=== PATIENT | female | born 1960 | race Caucasian/White ===

== ENCOUNTER 2019-03-23 08:55 | Inpatient (IN) | payer OTHER, MEDICAID, SELFPAY ==
[2019-03-08 09:58] VITALS: BMI 30.8
[2019-03-23] VITALS (15 sets, daily range): BP systolic 100–162; BP diastolic 46–104; PULSE 55–76; RESP 10–16; TEMP 36.1–36.9; O2SAT 94–100; BMI 30.1
--- NOTE | 2019-03-23 | DI.RAD.S_ITS ---
PROCEDURE: XR LUMBAR SPINE 2-3V INDICATIONS: L5-S1 TLIF TECHNIQUE: 2 views of the lumbar spine were acquired. COMPARISON: None. FINDINGS: Spot fluoroscopic images demonstrate L5-S1 posterior spinal fixation with interbody cage graft. There is expected intraoperative alignment. Dictated by: Christiano Prabhakar M.D. on 03/23/2019 at 13:32 Approved by: Christiano Prabhakar M.D. on 03/23/2019 at 13:33
[2019-03-23] MEDS: LACTATED RINGERS 1,000 ML 42 ML IV ×3 (09:30→13:50)
--- NOTE | 2019-03-23 10:05 | SUR.PREOP ---
Pt reports has pain and numbness in tingling in left leg.
--- NOTE | 2019-03-23 10:14 | PM.PREOP ---
Pre-operative Note Interval Note History & Physical reviewed/Exam performed by Physician: Yes Changes to H&P: No
--- NOTE | 2019-03-23 10:23 | PM.OP.1 ---
Operative Date/Time/Diagnoses Date of procedure: 03/23/19 Time of procedure: 13:26 Pre-op diagnosis: Lumbar stenosis with radiculopathy Post-op diagnosis: same Procedure & Clinicians Procedure: L5-S1 TLIF (post/post interbody fusion) with cage L5 and S1 screws Iliac crest bone graft aspirate L5-S1 laminectomy Use of microscope Placement of epidural catheter Same procedure as scheduled: Yes Indications: [age] year old female with intractable pain from stenosis. They had failed conservative management and requested operative intervention. Risks and benefits of surgery were discussed and appropriate consents were obtained. Surgeon: Isaac Ayala Ambulatory Care Nurse: Meghann Christensen Anesthesia Type: General Operative Notes Findings: None Closure Type: primary Specimen(s): none sent Prosthetic devices, grafts, tissues, transplants, or devices: Globus Creo screws and Rise cage Applied: catheter Estimated Blood Loss (mL): 20 Blood products transfused: none Procedure in detail: The patient was brought to the operating room and intubated on the table. A time-out was performed. They were then rolled over to the well-padded Rashel table in the prone position. Preoperative antibiotics were given. The back was prepped and draped in the standard sterile fashion. Using fluoroscopy, a 4 cm longitudinal incision was made to the well-marked left of the midline. We used Bovie to come down to and split the lumbodorsal fascia. Using fluoroscopy and monitoring, we then percutaneously placed Jamshidi needles down the pedicles of L5 and S1 on the left side. These were changed out to guidewires and then we tapped and then placed the Globus Creo screw shanks. We then opened up the retractors and used Bovie to clear up the posterolateral gutter as well as medially along the lamina to the spinous processes. A bur was used to decorticate the transverse process of L5 and the sacral ala. We brought in the microscope. Using a combination of bur and Kerrison rongeurs, a laminectomy was performed at L5-S1 from the left side. We cleared over past the midline and carefully depressed the dura until we were able to decompress the opposite side. We cleared out the neural foramen using a facetectomy to open up the dorsal roof. This completed the laminectomy at L5-S1. This was separate and distinct from the TLIF approach as we were decompressing stenosis. We then began the TLIF prep. We carefully cleaned up the remainder of the foramen until we could easily retract the exiting root as well as clearing medially below the dura and expose the disc space. The disc was prepped with bipolar and then an annulotomy was performed. We performed a diskectomy using a combination of paddles, roma, pituitaries, and curettes. We distracted the disc using a paddle and locked the retractor in an open position. We then filled the disc space with Trifecta bone graft. We then placed the globus Rise cage under fluoroscopy and then filled this in with more bone graft. The distraction on the retractor was released to compress down. This completed the posterior interbody fusion portion of the TLIF at L5-S1. We then placed the screw heads, corey, and locked down the set screws. The wound was copiously irrigated. A small stab incision was made over the PSIS. We used a Jamshidi needle to aspirate several mL of bone marrow from the pelvis. This was mixed with the remaining Trifecta and combined with all of the locally harvested bone graft and placed in the posterolateral gutter for the posterior fusion of the TLIF at L5-S1. An epidural catheter was then placed in the spinal canal by carefully depressing the dura and advancing it 6 cm cephalad under the remaining lamina without resistance. The muscle fascia was closed. The catheter was then injected with a solution containing 4 mL of 0.5% Marcaine, 1 mg Stadol, 4 mg Duramorph, and 100 mcg of fentanyl. This was injected without resistance and the catheter was pulled. We then went to the opposite side. Again using fluoroscopy, a 3 cm incision was made and Bovie was used to come down to split the fascia. Using neural monitoring and fluoroscopy, Jamshidi needles were advanced down the pedicles of L5 and S1 on the right side. These were switched over guidewires, tapped, and screws placed. We then placed a corey and locked the set screws on this side. The wound was irrigated. The fascia was closed. Vancomycin powder was placed in the wounds. The superficial and skin were closed. A sterile dressing was placed. The patient was then rolled over extubated and brought to recovery room without complications. Complications: none Post-operative Condition: stable Disposition: PACU Plan for aftercare: Inpatient. Up with therapy.
[2019-03-23] MEDS: CEFAZOLIN 2 GM/100 ML FROZ.PIGGY IV ×2 (11:00→19:12)
--- NOTE | 2019-03-23 11:33 | SUR.OPER ---
Prone on spine table, head in foam head support, padded chest and pelvic supports, gel pad at knees, lower legs supported by pillows; nipples, genitalia and toes free of pressure, arms secured on foam padded arm boards at <90 degrees abduction. Tape over blanket at thigh secured to table.
[2019-03-23] MEDS: SODIUM CHLORIDE 0.9% 1,000 ML, GENTAMICIN 80 MG IRR (11:37)
[2019-03-23] MEDS: THROMBIN (RECOMBINANT) 5,000 UNIT VIAL 5000 UNIT TOP (11:37)
[2019-03-23] MEDS: VANCOMYCIN 1,000 MG VIAL 1000 MG TOP (11:37)
[2019-03-23] MEDS: BUPIVACAINE 0.5% (PF) 4 ML, MORPHINE-PF 4 MG, BUTORPHANOL 1 MG, fentaNYL 100 MCG INJ (12:07)
[2019-03-23] MEDS: fentaNYL 100 MCG/2 ML INJ IV ×2 (14:15→14:25)
[2019-03-23] MEDS: hydrOXYzine 50 MG/ML INJ 25 MG IM (14:32)
[2019-03-23] MEDS: HYDROMORPHONE 2 MG INJ IV ×2 (14:36→14:50)
[2019-03-23] MEDS: GABAPENTIN 600 MG TABLET PO ×2 (16:00→21:49)
[2019-03-23] MEDS: OXYCODONE IR 5 MG TABLET 10 MG PO ×3 (16:01→23:00)
[2019-03-23] MEDS: ACETAMINOPHEN 325 MG TABLET 650 MG PO ×2 (16:01→22:59)
[2019-03-23] MEDS: LACTATED RINGERS 1,000 ML 125 ML IV (16:02)
--- NOTE | 2019-03-23 16:17 | PC.NURSE ---
Addendum entered by Charo Mcguire R.N. 03/23/19 23:34: Up in recliner for evening meal. Sat up for lengthy period and required one assist with walker to return to bed. Observes log roll technique. Remains awake all shift, conversant with staff. Cruz to gravity with brisk urinary output. Pain 4/10 to back. Medicated as per emar. BL foot pumps in place. Addendum entered by Charo Mcguire R.N. 03/23/19 16:53: P.T. in to mobilize pt. Original Note: Pt to room 214 from PACU wide wake. Admits to full sensation to BL LE's. Able to push/pull with feet BL. BL foot pumps in place. Denies nausea. Reinforced no twisting, bending, lifting. Log roll technique reinforced as pt turned to left side and positioned for comfort in bed. Dressing to central lower back is dry and intact. Ice to site. Multiple visitors in with pt. Pt is conversant. Given applesauce and crackers with oxycodone and tylenol to manage back pain 6/10 which pt describes as constant and dull in nature. Call light available and pt instructed in use of bed controls.
--- NOTE | 2019-03-23 17:44 | PT.IIE ---
Current Diagnoses Spinal stenosis, lumbar region with neurogenic claudication (03/23/19) Other intervertebral disc degeneration, lumbar region (03/23/19) Radiculopathy, lumbar region (03/23/19) Surgery Performed Operation Date: 03/23/19 11:15 Actual Procedures p L5S1 laminectomy & instrumented fusion (TLIF) w/ bone graft - Isaac Ayala MD Surgical History (Last Updated 03/08/19 @ 10:15 by Vicki Moncada, RN) History of partial hysterectomy (Acute ~1983) Hx of tonsillectomy (Acute) Hx of tubal ligation (Acute ~1982) Medical History (Last Updated 03/08/19 @ 10:15 by Vicki Moncada RN) Easy bruisability (Acute) Heartburn (Acute) HTN (hypertension) (Acute) IBS (irritable bowel syndrome) (Acute) Kidney stones (Acute ~1981) MRSA (methicillin resistant Staphylococcus aureus) (Acute ~2009) Sciatica (Acute) Physical Therapy Inpatient Evaluation/Re-Eval M1 PT/OT-IP Prior Functional Status Start: 03/23/19 17:13 Freq: NEEDED Status: Active Protocol: Document 03/23/19 16:50 HH (Rec: 03/23/19 17:43 [id number]) Medical Review Prior Functional Status Medical History Reviewed Yes Diet/Fluid Consistency Regular Communication no deficits noted. Able to make needs known Mobility and Gait Pt was independent for home and community mobility without AD. Pt did say she has lots of pain for prolonged standing , walking and sitting. Moving around does help her to relieve pain. Activities of Daily Living and IADL's Independent for ADLs and IADLs without AD Social History Household Members family Living Arrangements House Number of Floors (Floors) One Floor Number of Stairs To Enter/Railing? 2 KARUNA with b rails Home Environment Standard Height Toilet,Tub/ Shower Home Equipment Four Wheel Walker,Straight Cane Employment Status Unemployed Additional Social History Comment Pt lives in [place] with her sister and brother in law. Her sister is a CG for her so she will be home to assist 29/11 upon pt's d/c. Pt has a BF Raheel who is her ex will also be able to assist if needed. M2 PT-IP Current Condition Start: 03/23/19 17:13 Freq: NEEDED Status: Active Protocol: Document 03/23/19 16:50 (Rec: 03/23/19 17:43 [id number]) Physical Therapy Current Condition Current Condition Evaluation Date 03/23/19 Treatment Diagnosis L5-S1 TLIF, decreased activity tolerance, difficulty in walking Onset Date 03/23/19 Precautions Lumbar Precautions Log Roll,No Twisting,Limit Bending,Lifting Restriction of 10 lbs,Gait Belt above Incisional Area Weight Bearing Status Weight Bearing Status Full Weight Bearing M3 PT-IP Subjective Start: 03/23/19 17:13 Freq: NEEDED Status: Active Protocol: Document 03/23/19 16:50 HH (Rec: 03/23/19 17:43 [id number]) Subjective Physical Therapy Visit Type Type Initial Evaluation Visit Start Time 16:50 Visit Stop Time 17:15 Total Visit Minutes 25 Notes Per Nursing, pt has sensation to BLEs and ready to get OOB. Pt's BF Raheel attended session. Number of CARTON WAXING MACHINE OPERATOR Visits 0 Physical Therapy Visit Comments Patient Comments I think i am ready to walk Patient Goals To return home with her sister . Therapy Pain Assessment Pain When Pain Assessed During Mobility Pain Present Pain Present Pain Reported Location back Intensity 6 Scale Used Numeric (1 - 10) Description Acute Pain Management Techniques Apply Cold,Re-positioning, Timing of Activity with Medications M4 PT-IP Mobility and Gait Start: 03/23/19 17:13 Freq: NEEDED Status: Active Protocol: Document 03/23/19 16:50 HH (Rec: 03/23/19 17:43 [id number]) PT-Bed Mobility Assessment Rolling Type of Rolling Log Rolling,Roll to Left Level of Assist Contact Guard Assistance Supine to Sit Supine to Sit Contact Guard Assistance Scooting Scooting to Edge of Bed Contact Guard Assistance PT-Transfer Assessment Sit to and From Stand Sit to and from Stand Contact Guard Assistance,Use of Upper Extremities Equipment Transfer Assistive Device Gait Belt,Front Wheeled Walker Orthotic/Prosthetic Devices or Brace: No Transfers Transfer Destination Chair Transfer Technique Stand Step Pivot Transfer Ability Level of Assist Contact Guard Assistance,Use of Upper Extremities Comments Mobility Comments Pt's BP pre and post mobility = 120s/60s. Pt was in bed upon assessment. Pt was able to complete log roll to L EOB and sat up with CGA, followed by scooting towards EOB. She then stood up with CGA and FWW, then amb towards the end of [facility]. She then returned to bedside chair with stand step pivot with safe proper hand placements on armrests. Pt sat in chair comfortably with call light within reach. Gait Assessment Gait Gait Assistance Required: Contact Guard Assist Distance (Feet) 150 Able to Maintain Weight Bearing Status Yes During Gait Assistive Devices Assistive Device Gait Belt,Front Wheeled Walker Orthotic/Prosthetic Devices or Brace: No Gait Deviations General Gait Pattern Decreased Stride Length, Decreased Feet Clearance Factors Limiting Gait Function Factors Limiting Gait Function Decreased Activity Tolerance, Decreased Strength,Limited Range of Motion,Pain Comments Gait Comments Pt amb from her room to end of [facility] and returned to bedside chair with FWW CGA. Pt appears very steady and no signs of LOB. She stated she is walking slightly slower then PLOF but feels very safe at this point. Pt did c/o increased back pain to 6/10 after amb. Stair Climbing Assessment Comments Stair Climbing Comments did not assess PT-Balance Assessment Sitting Balance and Reactions Static Sitting Balance Ability Normal Dynamic Sitting Balance Ability Normal Standing Balance and Reactions Static Standing Balance Ability Good Dynamic Standing Balance Ability Good Device Used fww M5 PT-IP Objective Assessments Start: 03/23/19 17:13 Freq: NEEDED Status: Active Protocol: Document 03/23/19 16:50 HH (Rec: 03/23/19 17:43 [id number]) Orientation Orientation/Cognition Level of Alertness Alert Orientation Name,Age,Birthday,Month,Date, Year,Day of Week,Place, Situation Language Function Ability No Deficits Noted Safety Awareness Understands Safety Issues Memory Description No Deficits Noted Comments pt is able to recall all precautions. Gross Range of Motion Upper Extremity ROM Assessment Within Functional Limits Lower Extremity ROM Assessment Within Functional Limits Strength Upper Extremity Strength Assessment Within Functional Limits Lower Extremity Strength Assessment Bilaterally Impaired Hip 4/5 Knee 4/5 Coordination Assessment Gross Coordination Gross Coordination WNL Sensation Assessment Sensation Gross Sensation WNL Muscle Tone Muscle Tone WNL Yes M6 PT-IP Treatment Start: 03/23/19 17:13 Freq: NEEDED Status: Active Protocol: Document 03/23/19 16:50 HH (Rec: 03/23/19 17:43 [id number]) Physical Therapy Treatment Education Education Provided Precautions,Weight Bearing Status,Post-Op Packet,Safety Other Treatments Other Treatment Performed adjust pt's 4WW to her wrist level for mobility use. Education on precautions and log roll method. M7 PT-IP Assessment and Plan Start: 03/23/19 17:13 Freq: NEEDED Status: Active Protocol: Document 03/23/19 16:50 HH (Rec: 03/23/19 17:43 HH [id number]) PT Summary Assessment and Plan Potential Rehabilitation Potential Excellent Status of Condition at Evaluation Stable Summary Impairments Pain,ROM,Strength,Balance,Bed Mobility,Transfers,Gait, Activity Tolerance Assessment Summary Pt is low complexity who is POD1 L5-S1 TLIF. Pt did very well for all mobility: transfers and amb with FWW and CGA. She also denies radiating pain but does have increased RLBP to 6/10 after amb. Pt has strong social support to assist her as needed. Expect pt to be d/c home with sister/boyfriend's assistance. Goals Bed Mobility Goal Independent Transfer Goal Independent,Front Wheeled Walker,Four Wheeled Walker Gait Goal Independent,Front Wheel Walker ,Four Wheel Walker Gait Distance 300 Other Goals amb with 4WW 2STE with b rails Days to Meet Goals 5 Frequency of Treatment Frequency Of Treatment Twice a Day Treatment Plan Physical Therapy Treatment Plan Bed Mobility Training,Transfer Training,Gait Training, Therapeutic Exercise,Balance Retraining,Post Op Education, Discharge Planning,Hot or Cold Pack,Neuromuscular Re-ed Other Recommendations and Next Treatment stair climbing if possible Focus 4WW training as pratik Recommendations To Nursing Amount of Assist Needed 1 Person Assist Discharge Recommendations PT Discharge Recommendations Home with Assistance Equipment Needed for Home Before shower seat Discharge
[2019-03-23] MEDS: hydrOXYzine pamoate 25 MG CAPSULE PO (21:47)
[2019-03-24] VITALS: BP 126/73; PULSE 70; RESP 16; TEMP 36.4; O2SAT 94
[2019-03-24] MEDS: LACTATED RINGERS 1,000 ML 125 ML IV (00:05)
[2019-03-24] MEDS: CEFAZOLIN 2 GM/100 ML FROZ.PIGGY IV (03:31)
[2019-03-24] MEDS: OXYCODONE IR 5 MG TABLET 10 MG PO ×6 (03:33→22:45)
[2019-03-24 05:38] VITALS: BP 106/62; PULSE 72; RESP 16; TEMP 36.3; O2SAT 98
[2019-03-24 06:13] LABS: Hematocrit 35.8 % (36-46); Hemoglobin 12.5 g/dL (12.0-16.0)
[2019-03-24 07:30] VITALS: BP 100/65; PULSE 72; RESP 16; TEMP 36.8; O2SAT 95
--- NOTE | 2019-03-24 08:09 | PM.PNPO.1 ---
Subjective Subjective Date Patient Seen: 03/24/19 Time Patient Seen: 08:09 Interval history: She is nearly pain-free yesterday but the pain levels have been going up this morning. Comfortable at rest but 6/10 across the back when moving. Legs are fine Exam Vital Signs (past 8 hours): - 03/24/19 05:38 Temperature 97.4 F L Pulse Rate 72 Respiratory Rate 16 Blood Pressure 106/62 Pulse Oximetry 98 Oxygen Delivery Method Room Air Oxygen Flow Rate 0 Const Orientation: alert and oriented x3 Back/Spine/Pelvis Other: Dressing clean but peeling up. 5/5 motor both lower extremities Objective Labs Result Diagrams: 03/24/19 06:02 Labs: Laboratory Results - last 24 hr 03/24/19 06:02 Hgb 12.5 Hct 35.8 L Assessment & Plan Post-op Postoperative Procedures: Procedures Operation Date: 03/23/19 11:15 Actual Procedures Side Surgeon p L5S1 laminectomy & instrumented fusion (TLIF) w/ bone graft Isaac Ayala MD Her epidural is wearing off but her pain is still under good control. Mobilize today with physical therapy. Anticipate discharge home tomorrow. Quality VTE Deep Vein Thrombosis/Pulmonary Embolism Present on Admission: No
[2019-03-24] MEDS: GABAPENTIN 600 MG TABLET PO ×3 (09:12→22:02)
--- NOTE | 2019-03-24 10:35 | PT.IPTN ---
Current Diagnoses Spinal stenosis, lumbar region with neurogenic claudication (03/23/19) Other intervertebral disc degeneration, lumbar region (03/23/19) Radiculopathy, lumbar region (03/23/19) Surgery Performed Operation Date: 03/23/19 11:15 Actual Procedures p L5S1 laminectomy & instrumented fusion (TLIF) w/ bone graft - Isaac Ayala MD Physical Therapy Treatment Note M2 PT-IP Current Condition Start: 03/23/19 17:13 Freq: NEEDED Status: Active Protocol: Document 03/24/19 10:08 DCW (Rec: 03/24/19 10:47 DCW [id number]) Physical Therapy Current Condition Current Condition Evaluation Date 03/23/19 Treatment Diagnosis L5-S1 TLIF, decreased activity tolerance, difficulty in walking Onset Date 03/23/19 Precautions Lumbar Precautions Log Roll,No Twisting,Limit Bending,Lifting Restriction of 10 lbs,Gait Belt above Incisional Area Weight Bearing Status Weight Bearing Status Full Weight Bearing M3 PT-IP Subjective Start: 03/23/19 17:13 Freq: NEEDED Status: Active Protocol: Document 03/24/19 10:08 DCW (Rec: 03/24/19 10:47 DCW [id number]) Subjective Physical Therapy Visit Type Type Treatment Note Visit Start Time 10:08 Visit Stop Time 10:35 Total Visit Minutes 27 Number of LITURGICAL MUSIC DIRECTOR Visits 0 Physical Therapy Visit Comments Patient Comments I'm not doing as well today. I just tried to adjust myself in bed, and my pain got up to a 7-8/10. Therapy Pain Assessment Pain When Pain Assessed During Mobility Pain Present Pain Present Pain Reported Location back Intensity 5 Scale Used Numeric (1 - 10) Description Acute Pain Management Techniques Modification of Treatment,Re- positioning,Timing of Activity with Medications M4 PT-IP Mobility and Gait Start: 03/23/19 17:13 Freq: NEEDED Status: Active Protocol: Document 03/24/19 10:08 DCW (Rec: 03/24/19 10:47 DCW [id number]) Gait Assessment Gait Gait Assistance Required: Standby Assistance Distance (Feet) 300 Able to Maintain Weight Bearing Status Yes During Gait Assistive Devices Assistive Device Gait Belt,4 Wheeled Walker Orthotic/Prosthetic Devices or Brace: No Factors Limiting Gait Function Factors Limiting Gait Function Limited Range of Motion,Pain Comments Gait Comments Pt ambulated from her room to the therapy stairs, ascended/ descended stairs x3 /c bilateral rails, and then returned to her room using the 4WW, all SBA Stair Climbing Assessment Evaluation Level of Assist On Stairs Standby Assistance,Contact Guard Assistance Devices Stair Climbing Assistive Devices Left Railing,Right Railing Technique/Endurance Stair Climbing Direction Ascend and Descend Stair Climbing Technique Step Over Step Number of Steps Climbed 3 Stair Climbing Set # Repetitions (reps) 3 M5 PT-IP Objective Assessments Start: 03/23/19 17:13 Freq: NEEDED Status: Active Protocol: Document 03/23/19 16:50 HH (Rec: 03/23/19 17:43 HH [id number]) Orientation Orientation/Cognition Level of Alertness Alert Orientation Name,Age,Birthday,Month,Date, Year,Day of Week,Place, Situation Language Function Ability No Deficits Noted Safety Awareness Understands Safety Issues Memory Description No Deficits Noted Comments pt is able to recall all precautions. Gross Range of Motion Upper Extremity ROM Assessment Within Functional Limits Lower Extremity ROM Assessment Within Functional Limits Strength Upper Extremity Strength Assessment Within Functional Limits Lower Extremity Strength Assessment Bilaterally Impaired Hip 4/5 Knee 4/5 Coordination Assessment Gross Coordination Gross Coordination WNL Sensation Assessment Sensation Gross Sensation WNL Muscle Tone Muscle Tone WNL Yes M6 PT-IP Treatment Start: 03/23/19 17:13 Freq: NEEDED Status: Active Protocol: Document 03/24/19 10:08 DCW (Rec: 03/24/19 10:47 DCW [id number]) Physical Therapy Treatment Education Education Provided Precautions,Safety M7 PT-IP Assessment and Plan Start: 03/23/19 17:13 Freq: NEEDED Status: Active Protocol: Document 03/24/19 10:08 DCW (Rec: 03/24/19 10:47 DCW [id number]) PT Summary Assessment and Plan Summary Impairments Pain,ROM,Strength,Balance,Bed Mobility,Transfers,Gait, Activity Tolerance Assessment Summary Pt is experiencing increased pain POD #2, however performed an excellent log roll independently, and was independent with bed mobility and transfers. Pt felt much better after getting up and walking, and was able to walk to the therapy stairs, ascend/ descend three times, and then return to her room using her 4WW. Pt doing very well mobility-[place], and will likely be safe to return home after her pain is better controlled. Continued therapy will focus on practicing gait tolerance, stairs, and strengthening/ balance training. Goals Bed Mobility Goal Independent Transfer Goal Independent,Front Wheeled Walker,Four Wheeled Walker Gait Goal Independent,Front Wheel Walker ,Four Wheel Walker Gait Distance 300 Other Goals amb with 4WW 2STE with b rails Days to Meet Goals 5 Frequency of Treatment Frequency Of Treatment Twice a Day Treatment Plan Physical Therapy Treatment Plan Bed Mobility Training,Transfer Training,Gait Training, Therapeutic Exercise,Balance Retraining,Post Op Education, Discharge Planning,Hot or Cold Pack,Neuromuscular Re-ed Other Recommendations and Next Treatment stairs, 4WW training as pratik, Focus balance/strength Recommendations To Nursing Amount of Assist Needed Standby Assistance,1 Person Assist Discharge Recommendations PT Discharge Recommendations Home with Assistance Equipment Needed for Home Before shower seat Discharge
[2019-03-24 11:12] VITALS: BP 109/72; PULSE 77; RESP 16; TEMP 36.9; O2SAT 95
--- NOTE | 2019-03-24 11:40 | OT.IP.EVAL ---
Current Diagnoses Spinal stenosis, lumbar region with neurogenic claudication (03/23/19) Other intervertebral disc degeneration, lumbar region (03/23/19) Radiculopathy, lumbar region (03/23/19) Surgery Performed Operation Date: 03/23/19 11:15 Actual Procedures p L5S1 laminectomy & instrumented fusion (TLIF) w/ bone graft - Isaac Ayala MD Past Medical History (Last Updated 03/08/19 @ 10:15 by Vicki Moncada RN) Easy bruisability (Acute) Heartburn (Acute) HTN (hypertension) (Acute) IBS (irritable bowel syndrome) (Acute) Kidney stones (Acute ~1981) MRSA (methicillin resistant Staphylococcus aureus) (Acute ~2009) Sciatica (Acute) Surgical History (Last Updated 03/08/19 @ 10:15 by Vicki Moncada RN) History of partial hysterectomy (Acute ~1983) Hx of tonsillectomy (Acute) Hx of tubal ligation (Acute ~1982) Occupational Therapy Inpatient Evaluation/Re-Eval M1 PT/OT-IP Prior Functional Status Start: 03/23/19 17:13 Freq: NEEDED Status: Active Protocol: Document 03/24/19 11:43 CGR (Rec: 03/24/19 11:57 CGR [email or web address]) Medical Review Prior Functional Status Medical History Reviewed Yes Diet/Fluid Consistency Regular Communication no deficits noted. Able to make needs known Mobility and Gait Pt was independent for home and community mobility without AD. Pt did say she has lots of pain for prolonged standing , walking and sitting. Moving around does help her to relieve pain. 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 Discussed good ergonomics for working as a supervisor food checkers and cashiers. Social History Household Members family Living Arrangements House Number of Floors (Floors) One Floor Number of Stairs To Enter/Railing? 2 KARUNA with b rails Home Environment Standard Height Toilet,Tub/ Shower Home Equipment Four Wheel Walker,Straight Cane Employment Status Unemployed Additional Social History Comment Pt lives in [place] with her sister and brother in law. Her sister is a CG for her so she will be home to assist 29/11 upon pt's d/c. Pt has a BF Raheel who is her ex will also be able to assist if needed. M2 OT-IP Current Condition Start: 03/24/19 11:42 Freq: Status: Active Protocol: Document 03/24/19 11:43 CGR (Rec: 03/24/19 11:57 CGR [email or web address]) Occupational Therapy Current Condition Current Condition Evaluation Date 03/24/19 Treatment Diagnosis L5-S1 TLIF with bone graft Diagnosis Onset Date 03/24/19 Post Operative Precautions Lumbar Precautions Log Roll,No Twisting,Limit Bending,Lifting Restriction of 10 lbs,Gait Belt above Incisional Area M3 OT- IP Subjective and Pain Start: 03/24/19 11:42 Freq: Status: Active Protocol: Document 03/24/19 11:43 CGR (Rec: 03/24/19 11:57 CGR [email or web address]) OT- Subjective Occupational Therapy Visit Type Type Initial Evaluation Visit Start Time 13:31 Visit Stop Time 11:40 Total Visit Minutes 69 Occupational Therapy Visit Comments Patient Comments My leg pain is pretty much gone. OT Pain Assessment Pain When Pain Assessed At Rest Pain Present Pain Present Pain Reported Location back Intensity 4 Scale Used Numeric (1 - 10) Management Techniques Distraction,Re-positioning, Timing of Activity with Medications M4 OT- IP ADL's Start: 03/24/19 11:42 Freq: Status: Active Protocol: Document 03/24/19 11:43 CGR (Rec: 03/24/19 11:57 CGR [email or web address]) OT [id number] Comments OT Self-Feeding Comments Not meal time but pt prepared a cup of tea with IND at end of session. OT ADL-Grooming General Evaluation Grooming Ability Independent Areas Needing Assistance Retrieving/Set-up of Grooming Items,Combing/Brushing Hair, Face Washing Comments OT Grooming Comments Standing at sink OT ADL-Oral Care General Eval Oral Care Ability Independent Areas of Assistance Brushing Teeth Comments Oral Care Comments Standing at sink OT ADL-Dressing General Eval Upper Body Dressing Ability Independent Lower Body Dressing Ability Standby Assistance Areas Needing Assistance Socks Comments OT Dressing Comments Pt able to perform LB dressing by bringing foot to knee without stretching to her lower back. Pt educated on donning underwear and pants using this technique and states understanding. OT ADL-Toileting General Evaluation Toileting Ability Independent Comments OT Toileting Comments Simulated seated on the toilet as pt still had a smith cath. Pt educated on pericare without twisting. OT ADL-Bathing Comments OT Bathing Comments Not performed in this session but discussed home safety with bathing and tub transfer. M5 OT- IP IADL's Start: 03/24/19 11:42 Freq: Status: Active Protocol: Document 03/24/19 11:43 CGR (Rec: 03/24/19 11:57 CGR [email or web address]) OT-Instrumental Activities of Daily Living Deficits IADL Deficits Identified Deficits Home Safety Awareness Awareness of Need for Assistance at Home Good Awareness Ability to Problem Solve Emergency Able to Problem Solve Situations Medication Management Medication Management No Deficits Identified Money Management Money Management No Deficits Identified Meal Preparation Meal Preparation Caregiver Provides Assist Meal Preparation Comments Pt states her sister has always done the cooking. 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 M6 OT- IP Functional Cognition Start: 03/24/19 11:42 Freq: Status: Active Protocol: Document 03/24/19 11:43 CGR (Rec: 03/24/19 11:57 CGR [email or web address]) Cognitive Factors Limiting Selfcare Function Cognitive Ability Level of Alertness Alert Patient Orientation Name,Age,Birthday,Month,Date, Year,Day of Week,Place, Situation Attention Span Ability Capable of Focused Attention, Capable of Sustained Attention Ability to Follow Commands Able to Follow Multi-Step Commands Memory Description No Deficits Noted Safety Awareness No Deficits Noted Problem Solving Ability No deficits Noted Executive Function Ability No Deficits Noted Abstract Thinking Ability No Deficits Noted OT- Vision and Hearing OT- Hearing Assessment OT- Hearing Assessment WFL OT- Vision Assessment Visual Acuity Glasses For Reading Visual Attentiveness WFL Occular Pursuits WFL Visual Convergence WFL Visual Brizuela WFL M7 OT- IP Mobility and Balance Start: 03/24/19 11:42 Freq: Status: Active Protocol: Document 03/24/19 11:43 CGR (Rec: 03/24/19 11:57 CGR [email or web address]) OT-Transfer Assessment Sit to and From Stand Sit to and from Stand Standby Assistance Transfers Transfer Ability Standby Assistance Technique Transfer Destination Chair,Toilet Transfer Technique Stand Step Pivot Devices Transfer Assistive Devices Gait Belt Comments Mobility Comments Mobility around the room with sba and gaitbelt for safety. OT- Balance Assessment Sitting Balance and Reactions Static Sitting Balance Ability Good Dynamic Sitting Balance Ability Fair M8 OT- IP Objective Assessments Start: 03/24/19 11:42 Freq: Status: Active Protocol: Document 03/24/19 11:43 CGR (Rec: 03/24/19 11:57 CGR [email or web address]) OT Gross Range of Motion Upper Extremity Range of Motion Assessment Within Functional Limits OT Strength Upper Extremity Strength Assessment Within Functional Limits Hand Petrology Teacher Strength Hand Dominance Right OT- Coordination Assessment Upper Extremity Finger to Nose Test Within Functional Limits Finger Tapping Test Within Functional Limits OT-Muscle Tone Assessment Muscle Tone WNL Yes OT Sensation Assessment Edema Edema Absent M9 OT- IP Assessment and Plan Start: 03/24/19 11:42 Freq: Status: Active Protocol: Document 03/24/19 11:43 CGR (Rec: 03/24/19 11:57 CGR [email or web address]) OT Summary Assessment and Plan Potential Rehabilitation Potential Excellent Analytic Complexity at Evaluation Low Summary OT Impairments Pain,Functional Mobility Progress Towards Goals Progressing Toward Goals,Safe For Discharge Assessment Summary Pt presents as a low complexity evaluation. Pt educated on back precautions and daily activity that would impact her ability to maintain back precautions. Pt has good support at home and is ready for D/C from an OT perspective . No further OT needs. Frequency of Treatment Frequency Of Treatment Discharge Discharge Recommendations OT Discharge Recommendations Home with 24/ Assist Home Equipment Needs Pt will benefit from a shower chair. She states she has an outdoor chair that she can use as a shower chair. No other needs noted.
--- NOTE | 2019-03-24 11:48 | PC.NURSE ---
Asssess- Patient is A&Ox3. She denies pain after 10mg of oxycodone given. Dressing to lower back will need to be changed today. Cruz catheter taken out and pt tolerated well. She is moving well with FWW and physical therapy. Pt heplocked and she is talking to discharge planning at this time. Voices no complaints.
[2019-03-24] MEDS: OXYCODONE IR 5 MG TABLET PO (12:47)
--- NOTE | 2019-03-24 13:43 | PT.IPTN ---
Current Diagnoses Spinal stenosis, lumbar region with neurogenic claudication (03/23/19) Other intervertebral disc degeneration, lumbar region (03/23/19) Radiculopathy, lumbar region (03/23/19) Surgery Performed Operation Date: 03/23/19 11:15 Actual Procedures p L5S1 laminectomy & instrumented fusion (TLIF) w/ bone graft - Isaac Ayala MD Physical Therapy Treatment Note M2 PT-IP Current Condition Start: 03/23/19 17:13 Freq: NEEDED Status: Active Protocol: Document 03/24/19 10:08 DCW (Rec: 03/24/19 10:47 DCW [id number]) Physical Therapy Current Condition Current Condition Evaluation Date 03/23/19 Treatment Diagnosis L5-S1 TLIF, decreased activity tolerance, difficulty in walking Onset Date 03/23/19 Precautions Lumbar Precautions Log Roll,No Twisting,Limit Bending,Lifting Restriction of 10 lbs,Gait Belt above Incisional Area Weight Bearing Status Weight Bearing Status Full Weight Bearing M3 PT-IP Subjective Start: 03/23/19 17:13 Freq: NEEDED Status: Active Protocol: Document 03/24/19 13:17 DCW (Rec: 03/24/19 14:26 DCW [email or web address]) Subjective Physical Therapy Visit Type Type Treatment Note Visit Start Time 13:17 Visit Stop Time 13:43 Total Visit Minutes 26 Number of BOTTOM PRECIPITATOR OPERATOR Visits 0 Physical Therapy Visit Comments Patient Comments I still feel pretty good unless I try to adjust myself in bed. I'm little light- headed from the pain pills. Also, I got myself up from the recliner, went to the bathroom, and got back in bed without any help. I probably wasn't supposed to do that, but I didn't want to bother the nurse. Therapy Pain Assessment Pain When Pain Assessed During Mobility Pain Present Pain Present Pain Reported Location back Intensity 6 Scale Used Numeric (1 - 10) Description Acute Pain Management Techniques Modification of Treatment,Re- positioning,Timing of Activity with Medications M4 PT-IP Mobility and Gait Start: 03/23/19 17:13 Freq: NEEDED Status: Active Protocol: Document 03/24/19 13:17 DCW (Rec: 03/24/19 14:26 DCW [email or web address]) Gait Assessment Gait Gait Assistance Required: Standby Assistance Distance (Feet) 483 Able to Maintain Weight Bearing Status Yes During Gait Assistive Devices Assistive Device Gait Belt Orthotic/Prosthetic Devices or Brace: No Factors Limiting Gait Function Factors Limiting Gait Function Decreased Activity Tolerance, Pain Comments Gait Comments Pt ambulated around the full hallyway of the acute floor SBA without an assistive device. M5 PT-IP Objective Assessments Start: 03/23/19 17:13 Freq: NEEDED Status: Active Protocol: Document 03/23/19 16:50 HH (Rec: 03/23/19 17:43 HH [id number]) Orientation Orientation/Cognition Level of Alertness Alert Orientation Name,Age,Birthday,Month,Date, Year,Day of Week,Place, Situation Language Function Ability No Deficits Noted Safety Awareness Understands Safety Issues Memory Description No Deficits Noted Comments pt is able to recall all precautions. Gross Range of Motion Upper Extremity ROM Assessment Within Functional Limits Lower Extremity ROM Assessment Within Functional Limits Strength Upper Extremity Strength Assessment Within Functional Limits Lower Extremity Strength Assessment Bilaterally Impaired Hip 4/5 Knee 4/5 Coordination Assessment Gross Coordination Gross Coordination WNL Sensation Assessment Sensation Gross Sensation WNL Muscle Tone Muscle Tone WNL Yes M6 PT-IP Treatment Start: 03/23/19 17:13 Freq: NEEDED Status: Active Protocol: Document 03/24/19 13:17 DCW (Rec: 03/24/19 14:26 DCW [email or web address]) Physical Therapy Treatment Education Education Provided Precautions,Safety M7 PT-IP Assessment and Plan Start: 03/23/19 17:13 Freq: NEEDED Status: Active Protocol: Document 03/24/19 13:17 DCW (Rec: 03/24/19 14:26 DCW [email or web address]) PT Summary Assessment and Plan Summary Impairments Pain,ROM,Strength,Balance,Bed Mobility,Transfers,Gait, Activity Tolerance Assessment Summary Pt not having as much pain with bed mobility this afternoon, and felt really good up walking, with just a slight pain right where the surgery was, but none in my legs. Pt ambulated around the full hallyway of the acute floor SBA without an assistive device. Pt had mild path deviation, however did not have any instances of LOB, and felt like she could probably walk more. Pt is likely approaching discharge from both in-patient PT and the hospital, and at this point, would likely be safe to return home. It may be beneficial for skilled PT to work with patient one more time to review precautions and go over LE strengthening one more time prior to discharge. Goals Bed Mobility Goal Independent Transfer Goal Independent,Front Wheeled Walker,Four Wheeled Walker Gait Goal Independent,Front Wheel Walker ,Four Wheel Walker Gait Distance 300 Other Goals amb with 4WW 2STE with b rails Days to Meet Goals 5 Frequency of Treatment Frequency Of Treatment Twice a Day Treatment Plan Physical Therapy Treatment Plan Bed Mobility Training,Transfer Training,Gait Training, Therapeutic Exercise,Balance Retraining,Post Op Education, Discharge Planning,Hot or Cold Pack,Neuromuscular Re-ed Other Recommendations and Next Treatment stairs, 4WW training as pratik, Focus balance/strength Recommendations To Nursing Amount of Assist Needed Standby Assistance,1 Person Assist Discharge Recommendations PT Discharge Recommendations Home with Assistance Equipment Needed for Home Before shower seat Discharge
--- NOTE | 2019-03-24 14:49 | CM.IDA ---
Discharge Planning/Care Management CM Discharge Assessment Start: 03/24/19 14:46 Freq: Status: Active Protocol: Document 03/24/19 14:46 AIDE (Rec: 03/24/19 14:49 AIDE [id number]) Discharge Planning Assessment Assigned Hvac Instructor BINTA Estrada DPOA/Assigned Designee Name Elvira (sister) Ashish (S.O.) Contact Information [phone], Advance Directives? No History Provided By Patient Prior Living Arrangements House Household Members family Type of transporation used prior to Drives own vehicle admit Independent with ADL's Yes Is patient alert and oriented? Yes Barriers to Discharge No Comment Reviewed chart. Met w/pt this afternoon, explained SW role. Pt explains she did well w/ therapy team and hopes to return home tomorrow or Tuesday . Pt lives w/her sister and brother in law, brother in law will be home and can assist pt physically as needed. Partner Ashish does not live w/ pt and works head buyer tobacco. Therapy team has cleared pt for return home w/outpt f/u as ordered. No DC needs identified at this time. Discharge Plan Home Transportation Arrangement Family Referrals Initiated None needed Review Status In Process
[2019-03-24 15:41] VITALS: BP 109/68; PULSE 76; RESP 18; TEMP 36.5; O2SAT 98
[2019-03-24 20:50] VITALS: BP 108/66; PULSE 87; RESP 18; TEMP 37.2
[2019-03-24] MEDS: DOCUSATE 100 MG CAPSULE PO (22:02)
[2019-03-24] MEDS: hydrOXYzine pamoate 25 MG CAPSULE PO (22:44)
[2019-03-25 00:26] VITALS: BP 97/63; PULSE 87; RESP 18; TEMP 37; O2SAT 96
[2019-03-25] MEDS: HYDROMORPHONE 0.5 MG INJ IV ×3 (01:07→09:45)
[2019-03-25] MEDS: SODIUM CHLORIDE 0.9% FLUSH 10 ML IV ×2 (01:08→05:10)
--- NOTE | 2019-03-25 01:51 | PC.NURSE ---
Addendum entered by Leigh Boss R.N. 03/25/19 05:51: Medicated again earlier with IV Dilaudid for 7/10 pain and now states she is comfortable at 4/10. Most of pain is with movements and states pain is in back and radiating down left leg into calf. Addendum entered by Leigh Boss R.N. 03/25/19 03:16: States she is doing so much better, but pain back up to 6/10 so medicated with Oxycodone but is aware she is able to have more Dilaudid if po does not work. Original Note: Patient is alert and oriented. Breath sounds CTA with RA sat of 96%. HRR. BP low at 97/63 but is asymptomatic. Denies nausea. BT present and is passing flatus. Voiding without dysuria, frequency or urgency. Moving self in bed and walks with walker and SBA. Having a great deal of back pain radiating into bilateral LE right > left. Stated pain was 7/10 so medicated with IV Dilaudid as too early to give Oxycodone. Within 15 minutes stated pain was down to 5/10 which was tolerable. CMS is intact bilaterally. Dressing to back is intact with small spots of serous drainage noted. Wearing bilateral foot SCD's. Fall risk score is moderate; bed alarm activated.
[2019-03-25] MEDS: OXYCODONE IR 5 MG TABLET 10 MG PO ×2 (03:14→07:51)
[2019-03-25 04:00] VITALS: BP 113/66; PULSE 83; RESP 18; TEMP 36.4; O2SAT 95
[2019-03-25 07:28] VITALS: BP 128/77; PULSE 84; RESP 16; TEMP 37.6; O2SAT 95
[2019-03-25] MEDS: ATENOLOL 50 MG TABLET PO (07:50)
[2019-03-25] MEDS: DOCUSATE 100 MG CAPSULE PO ×2 (07:51→21:46)
[2019-03-25] MEDS: GABAPENTIN 600 MG TABLET PO ×3 (07:51→21:46)
[2019-03-25] MEDS: ACETAMINOPHEN 325 MG TABLET 650 MG PO ×2 (09:40→22:32)
[2019-03-25] MEDS: hydrOXYzine pamoate 25 MG CAPSULE PO ×2 (09:41→21:46)
--- NOTE | 2019-03-25 10:16 | PM.PN.1 ---
Subjective Subjective Date Patient Seen: 03/25/19 Time Patient Seen: 10:16 Interval history: She was doing better yesterday, but the pain levels have been going up overnight. Sitting in chair at the moment very uncomfortable. Grimacing when I walked to the door. Lower extremities are unchanged Exam Vital Signs (past 8 hours): - 03/25/19 04:00 03/25/19 07:28 Temperature 97.5 F L 99.7 F H Pulse Rate 83 84 Respiratory Rate 18 16 Blood Pressure 113/66 128/77 Pulse Oximetry 95 95 Oxygen Delivery Method Room Air Oxygen Flow Rate 0 Narrative Exam Narrative: 5/5 strength in bilateral lower extremities however exam is pain limited. Some aching pain in the anterior aspect of her right thigh. No sensation changes Objective Labs Result Diagrams: 03/24/19 06:02 Assessment & Plan Assessment & Plan narrative: Initial plan was for possible discharge home today patient required IV Dilaudid overnight. Unchanged over her oxycodone to Dilaudid p.o. overly with better pain control. Continue mobilization Continue PT Time Spent With Patient Time with patient: less than 15 minutes Quality VTE Deep Vein Thrombosis/Pulmonary Embolism Present on Admission: No
[2019-03-25] MEDS: HYDROMORPHONE 4 MG TABLET PO ×4 (10:27→22:32)
--- NOTE | 2019-03-25 10:54 | PC.NURSE ---
Addendum entered by Maria Dolores Tong R.N. 03/25/19 14:41: Dilaudid po effective, pt's pain on movement decreased from 8/10 to 5-6/10 and with rest decreased from 4/10 to 3-4/10. Pt states feeling better and able to move around easier. Pt had shower, dressing change to lower back performed by RN Coordinator, edges rolled up. Original Note: Day Shift- Pt states 4/10 aching to lower back with rest and 8/10 with movement, tearing, facial grimacing with movement. Pain management plan discussed. PRN Oxycodone given at 0750 with no effect. PRN Tylenol and Vistaril given at 0940 and IV PRN Dilaudid IV given at 0745, PIV was not leaking with initial NS flush, became leaking and painful after Dilaudid given with NS flush after. Upon reassessment, pt did not have decreased pain as previously with last PRN IV Dilaudid dose. At 1015, Spoke with Dr. Iyer, plan to change prn pain medications. At 1030 Dilaudid 4mg po given and pt updated with new pain plan. Pt assisted back to bed from chair, lying on left side, supported with pillows and ice pack to back.
--- NOTE | 2019-03-25 12:07 | PT.IPTN ---
Current Diagnoses Spinal stenosis, lumbar region with neurogenic claudication (03/23/19) Other intervertebral disc degeneration, lumbar region (03/23/19) Radiculopathy, lumbar region (03/23/19) Surgery Performed Operation Date: 03/23/19 11:15 Actual Procedures p L5S1 laminectomy & instrumented fusion (TLIF) w/ bone graft - Isaac Ayala MD Physical Therapy Treatment Note M2 PT-IP Current Condition Start: 03/23/19 17:13 Freq: NEEDED Status: Active Protocol: Document 03/24/19 10:08 DCW (Rec: 03/24/19 10:47 DCW [id number]) Physical Therapy Current Condition Current Condition Evaluation Date 03/23/19 Treatment Diagnosis L5-S1 TLIF, decreased activity tolerance, difficulty in walking Onset Date 03/23/19 Precautions Lumbar Precautions Log Roll,No Twisting,Limit Bending,Lifting Restriction of 10 lbs,Gait Belt above Incisional Area Weight Bearing Status Weight Bearing Status Full Weight Bearing M3 PT-IP Subjective Start: 03/23/19 17:13 Freq: NEEDED Status: Active Protocol: Document 03/25/19 11:51 CLB (Rec: 03/25/19 12:49 CLB [id number]) Subjective Physical Therapy Visit Type Type Treatment Note Visit Start Time 11:51 Visit Stop Time 12:07 Total Visit Minutes 16 Number of INFORMATION SYSTEMS SECURITY ANALYST Visits 1 Physical Therapy Visit Comments Patient Comments Pt willing to work with therapy. Therapy Pain Assessment Pain When Pain Assessed At Rest Pain Present Pain Present Pain Reported Location back Pain Management Techniques Modification of Treatment,Re- positioning,Timing of Activity with Medications M4 PT-IP Mobility and Gait Start: 03/23/19 17:13 Freq: NEEDED Status: Active Protocol: Document 03/25/19 11:51 CLB (Rec: 03/25/19 12:49 CLB [id number]) PT-Transfer Assessment Sit to and From Stand Sit to and from Stand Standby Assistance Equipment Transfer Assistive Device Gait Belt,4 Wheeled Walker Orthotic/Prosthetic Devices or Brace: No Transfers Transfer Destination Chair Transfer Technique after gait walked Transfer Ability Level of Assist Standby Assistance Comments Mobility Comments Pt is SBA for sit<>stand Gait Assessment Gait Gait Assistance Required: Standby Assistance Distance (Feet) 300 Able to Maintain Weight Bearing Status Yes During Gait Assistive Devices Assistive Device Gait Belt,4 Wheeled Walker Orthotic/Prosthetic Devices or Brace: No Factors Limiting Gait Function Factors Limiting Gait Function Decreased Activity Tolerance, Pain Comments Gait Comments Pt ambulated in argu[place] with steady gait and good safety awareness. Stair Climbing Assessment Evaluation Level of Assist On Stairs Standby Assistance Technique/Endurance Stair Climbing Direction Ascend and Descend Stair Climbing Technique Step Over Step Number of Steps Climbed 3 Stair Climbing Set # Repetitions (reps) 2 M5 PT-IP Objective Assessments Start: 03/23/19 17:13 Freq: NEEDED Status: Active Protocol: Document 03/23/19 16:50 HH (Rec: 03/23/19 17:43 HH [id number]) Orientation Orientation/Cognition Level of Alertness Alert Orientation Name,Age,Birthday,Month,Date, Year,Day of Week,Place, Situation Language Function Ability No Deficits Noted Safety Awareness Understands Safety Issues Memory Description No Deficits Noted Comments pt is able to recall all precautions. Gross Range of Motion Upper Extremity ROM Assessment Within Functional Limits Lower Extremity ROM Assessment Within Functional Limits Strength Upper Extremity Strength Assessment Within Functional Limits Lower Extremity Strength Assessment Bilaterally Impaired Hip 4/5 Knee 4/5 Coordination Assessment Gross Coordination Gross Coordination WNL Sensation Assessment Sensation Gross Sensation WNL Muscle Tone Muscle Tone WNL Yes M6 PT-IP Treatment Start: 03/23/19 17:13 Freq: NEEDED Status: Active Protocol: Document 03/24/19 13:17 DCW (Rec: 03/24/19 14:26 DCW [email or web address]) Physical Therapy Treatment Education Education Provided Precautions,Safety M7 PT-IP Assessment and Plan Start: 03/23/19 17:13 Freq: NEEDED Status: Active Protocol: Document 03/25/19 11:51 CLB (Rec: 03/25/19 12:49 CLB [id number]) PT Summary Assessment and Plan Summary Assessment Summary Pt with good pain control this session. Pt is SBA sit<>stand , gait and stairs. Pt seems able to d/c home with assist when medically stable. Goals Bed Mobility Goal Independent Transfer Goal Independent,Front Wheeled Walker,Four Wheeled Walker Gait Goal Independent,Front Wheel Walker ,Four Wheel Walker Gait Distance 300 Other Goals amb with 4WW 2STE with b rails Days to Meet Goals 5 Frequency of Treatment Frequency Of Treatment Twice a Day Treatment Plan Physical Therapy Treatment Plan Bed Mobility Training,Transfer Training,Gait Training, Therapeutic Exercise,Balance Retraining,Post Op Education, Discharge Planning,Hot or Cold Pack,Neuromuscular Re-ed Recommendations To Nursing Amount of Assist Needed Standby Assistance,1 Person Assist Discharge Recommendations PT Discharge Recommendations Home with Assistance Equipment Needed for Home Before shower seat Discharge
--- NOTE | 2019-03-25 15:28 | PT.IPTN ---
Current Diagnoses Spinal stenosis, lumbar region with neurogenic claudication (03/23/19) Other intervertebral disc degeneration, lumbar region (03/23/19) Radiculopathy, lumbar region (03/23/19) Surgery Performed Operation Date: 03/23/19 11:15 Actual Procedures p L5S1 laminectomy & instrumented fusion (TLIF) w/ bone graft - Isaac Ayala MD Physical Therapy Treatment Note M2 PT-IP Current Condition Start: 03/23/19 17:13 Freq: NEEDED Status: Active Protocol: Document 03/24/19 10:08 DCW (Rec: 03/24/19 10:47 DCW [id number]) Physical Therapy Current Condition Current Condition Evaluation Date 03/23/19 Treatment Diagnosis L5-S1 TLIF, decreased activity tolerance, difficulty in walking Onset Date 03/23/19 Precautions Lumbar Precautions Log Roll,No Twisting,Limit Bending,Lifting Restriction of 10 lbs,Gait Belt above Incisional Area Weight Bearing Status Weight Bearing Status Full Weight Bearing M3 PT-IP Subjective Start: 03/23/19 17:13 Freq: NEEDED Status: Active Protocol: Document 03/25/19 15:09 CLB (Rec: 03/25/19 15:52 CLB [id number]) Subjective Physical Therapy Visit Type Type Treatment Note Visit Start Time 15:09 Visit Stop Time 15:28 Total Visit Minutes 19 Number of QUALITY 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 Therapy Pain Assessment Pain When Pain Assessed During Mobility Pain Present Pain Present Pain Reported M4 PT-IP Mobility and Gait Start: 03/23/19 17:13 Freq: NEEDED Status: Active Protocol: Document 03/25/19 15:09 CLB (Rec: 03/25/19 15:52 CLB [id number]) PT-Bed Mobility Assessment Rolling Type of Rolling Log Rolling,Roll to Left Supine to Sit Supine to Sit Standby Assistance,Bedrails Sit to Supine Sit to Supine Standby Assistance,Bedrails Scooting Scooting to Edge of Bed Standby Assistance PT-Transfer Assessment Sit to and From Stand Sit to and from Stand Standby Assistance Equipment Transfer Assistive Device Gait Belt,4 Wheeled Walker Transfers Transfer Destination Bed,Toilet Transfer Technique after gait walked Transfer Ability Level of Assist Standby Assistance Gait Assessment Gait Gait Assistance Required: Standby Assistance Distance (Feet) 400 Able to Maintain Weight Bearing Status Yes During Gait Assistive Devices Assistive Device Gait Belt,4 Wheeled Walker Orthotic/Prosthetic Devices or Brace: No Factors Limiting Gait Function Factors Limiting Gait Function Decreased Activity Tolerance, Pain M5 PT-IP Objective Assessments Start: 03/23/19 17:13 Freq: NEEDED Status: Active Protocol: Document 03/23/19 16:50 HH (Rec: 03/23/19 17:43 HH [id number]) Orientation Orientation/Cognition Level of Alertness Alert Orientation Name,Age,Birthday,Month,Date, Year,Day of Week,Place, Situation Language Function Ability No Deficits Noted Safety Awareness Understands Safety Issues Memory Description No Deficits Noted Comments pt is able to recall all precautions. Gross Range of Motion Upper Extremity ROM Assessment Within Functional Limits Lower Extremity ROM Assessment Within Functional Limits Strength Upper Extremity Strength Assessment Within Functional Limits Lower Extremity Strength Assessment Bilaterally Impaired Hip 4/5 Knee 4/5 Coordination Assessment Gross Coordination Gross Coordination WNL Sensation Assessment Sensation Gross Sensation WNL Muscle Tone Muscle Tone WNL Yes M6 PT-IP Treatment Start: 03/23/19 17:13 Freq: NEEDED Status: Active Protocol: Document 03/24/19 13:17 DCW (Rec: 03/24/19 14:26 DCW [id number]) Physical Therapy Treatment Education Education Provided Precautions,Safety M7 PT-IP Assessment and Plan Start: 03/23/19 17:13 Freq: NEEDED Status: Active Protocol: Document 03/25/19 15:09 CLB (Rec: 03/25/19 15:52 CLB [id number]) PT Summary Assessment and Plan Summary Impairments Pain,ROM,Strength,Balance,Bed Mobility,Transfers,Gait, Activity Tolerance Progress Towards Goals Progressing Toward Goals Assessment Summary Pt is SBA for all mobility and pt able to perform own pericare.Pt recalls 3/3 precautions and demonstrates good understanding during mobility. Pt seems able to d/c home with assist when medically stable. Goals Bed Mobility Goal Independent Transfer Goal Independent,Front Wheeled Walker,Four Wheeled Walker Gait Goal Independent,Front Wheel Walker ,Four Wheel Walker Gait Distance 300 Other Goals amb with 4WW 2STE with b rails Days to Meet Goals 5 Frequency of Treatment Frequency Of Treatment Twice a Day Treatment Plan Physical Therapy Treatment Plan Bed Mobility Training,Transfer Training,Gait Training, Therapeutic Exercise,Balance Retraining,Post Op Education, Discharge Planning,Hot or Cold Pack,Neuromuscular Re-ed Recommendations To Nursing Amount of Assist Needed Standby Assistance,1 Person Assist Discharge Recommendations PT Discharge Recommendations Home with Assistance Equipment Needed for Home Before shower seat Discharge
[2019-03-25 15:45] VITALS: BP 100/65; RESP 18; TEMP 36.4; O2SAT 96
[2019-03-25 20:38] VITALS: BP 113/66; PULSE 88; RESP 16; TEMP 37.1; O2SAT 96
[2019-03-25 23:30] VITALS: BP 123/51; PULSE 87; RESP 18; TEMP 37.9; O2SAT 95
[2019-03-26] MEDS: HYDROMORPHONE 4 MG TABLET PO ×3 (03:42→12:36)
[2019-03-26] MEDS: hydrOXYzine pamoate 25 MG CAPSULE PO ×3 (03:42→12:36)
[2019-03-26 03:59] VITALS: BP 106/53; PULSE 80; RESP 16; TEMP 36.9; O2SAT 96
--- NOTE | 2019-03-26 07:43 | PM.DS.1 ---
History of Present Illness History of Present Illness Date Patient Seen: 03/26/19 Time Patient Seen: 07:43 Chief complaint: [id number] Narrative: Patient's pain is moderate to severe. Denies fever chills. No nausea vomiting. Patient does have assistance at home. Discharge Providers Provider Date of admission: 03/23/19 08:55 Discharge Date: 03/26/19 Primary care physician: Aries Rice Consults: 03/23/19 15:46 Consult to Occupational Therapy Evaluate & Treat Comment: Physician Instructions: Evaluate and treat Consult to Physical Therapy Evaluate & Treat Comment: Physician Instructions: Evaluate and Treat Discharge provider: Zhang Zamora PA-C Summary Hospital Course Discharge Diagnosis: Pre-op diagnosis: Lumbar stenosis with radiculopathy Post-op diagnosis: same Hospital Course: [address] [address] Operative Note Patient: Fani Medina [facility]#: [id number] : 2Acct:[id number] Age/Sex: 58 / F Date of Service: 03/23/19 Provider: Isaac Ayala MD Operative Date/Time/Diagnoses Date of procedure: 03/23/19 Time of procedure: 13:26 Pre-op diagnosis: Lumbar stenosis with radiculopathy Post-op diagnosis: same Procedure & Clinicians Procedure: L5-S1 TLIF (post/post interbody fusion) with cage L5 and S1 screws Iliac crest bone graft aspirate L5-S1 laminectomy Use of microscope Placement of epidural catheter Same procedure as scheduled: Yes Indications: [age] year old female with intractable pain from stenosis. They had failed conservative management and requested operative intervention. Risks and benefits of surgery were discussed and appropriate consents were obtained. Surgeon: Isaac Ayala Heel Attacher: Meghann Christensen Anesthesia Type: General Operative Notes Findings: None Closure Type: primary Specimen(s): none sent Prosthetic devices, grafts, tissues, transplants, or devices: Globus Creo screws and Rise cage Applied: catheter Estimated Blood Loss (mL): 20 Blood products transfused: none Patient admitted to the hospital for the above-mentioned procedures. Patient consented to the same. Patient taken to the operating room underwent lumbar fusion. Patient back in her room recovering well as in stable condition. Patient will be discharged in stable condition today. 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 Lumbar dressing is clean, dry and intact. Neurovascular status is intact to the bilateral lower extremities. Objective Labs Result Diagrams: 03/24/19 06:02 Discharge Plan Discharge Plan Patient Disposition: Home Discharge comment: f/u 1.5 wks Discharge orders & Medications Prescriptions: New docusate sodium [DOK] 100 mg Capsule 100 mg PO BID PRN (Reason: constipation) Qty: 30 RF: 0 hydroxyzine pamoate 25 mg Capsule 25 mg PO Q4HR PRN (Reason: spasms) Qty: 20 RF: 0 oxycodone 5 mg Tablet See Rx Instructions .ROUTE .COMPLEX PRN (Reason: Pain, Moderate (4-6)) Qty: 40 RF: 0 hydromorphone 2 mg Tablet 2 mg PO Q4HR PRN (Reason: Pain, Moderate (4-6)) Qty: 30 RF: 0 Continued gabapentin 600 mg Tablet 600 mg PO TID RF: 0 atenolol 50 mg Tablet 50 mg PO DAILY RF: 0 sumatriptan succinate 100 mg Tablet 100 mg PO DAILY PRN (Reason: Migraine Headache) RF: 0 Follow up/Referrals: Aries Rice [Primary Care Provider] - Discharge Health Status Multidrug resistant organism: No MDRO Diet/Activity/Treatments Diet: Diet as Tolerated Activity: limited BLT 10 lbs lifting max Other treatments: ice as needed Skin/Wound/Dressing Care Report to your healthcare provider any signs of infection, such as:: chills, fever, night sweats, increased pain, unusual drainage and unusual redness Dressing: may change and shower POD#5 Visit Report/Discharge Packet Instructions: How to Prevent Falls, DI for Postoperative Pain, DI for Transforaminal Lumbar Interbody Fusion Stand Alone Forms: Surgery Discharge Visit Report Forms: Stroke Signs & Symptoms Discharge Data Primary Care Provider: Aries Rice Quality VTE Deep Vein Thrombosis/Pulmonary Embolism Present on Admission: No
[2019-03-26 07:50] VITALS: BP 108/70; PULSE 71; RESP 16; TEMP 36.6; O2SAT 95
[2019-03-26] MEDS: GABAPENTIN 600 MG TABLET PO (09:15)
[2019-03-26] MEDS: DOCUSATE 100 MG CAPSULE PO (09:15)
--- NOTE | 2019-03-26 09:53 | PC.NURSE ---
Addendum entered by Kaitlin Randall R.N. 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 Tsf to wc and assisted to family car by winch stripper. Addendum entered by Kaitlin Randall R.N. 03/26/19 13:15: PAIN - after working with phys therapy pt had incr back discomfort and leg spasms, becomes tearful I don't know if I can go home, spoke to Zhang VERDUZCO, no new orders rec'd, pt declines snf, given 4mg po dilaudid and 25mg po vistaril with lunch for pain 5 on scale 0/10 after resting in bed following phys therapy. Original Note: AM NOTE - pt is up in chair at bedside shift report, coversite cdi, pain 7 on scale 0/10, has had spasms along both legs, hr reg, + bt, declines laxatives, hx ibs and will manage at home as she had diarrhea just prior to surgery discussed constipation and narcotics, after meal became very uncomfortable, tearful and moaning in chair, slowly assisted to stand, ambul to br w/void and then slowly ambul to bed, assisted with log roll and positioned l side with pillow support, given 4mg po dilaudid and 25mg po vistaril, plan to dc home today, states sister will cherry picker operator late afternoon when off work.
[2019-03-26 11:00] VITALS: BP 112/65; PULSE 80; RESP 17; TEMP 37; O2SAT 95
--- NOTE | 2019-03-26 11:31 | PT.IPTN ---
Current Diagnoses Spinal stenosis, lumbar region with neurogenic claudication (03/23/19) Other intervertebral disc degeneration, lumbar region (03/23/19) Radiculopathy, lumbar region (03/23/19) Surgery Performed Operation Date: 03/23/19 11:15 Actual Procedures p L5S1 laminectomy & instrumented fusion (TLIF) w/ bone graft - Isaac Ayala MD Physical Therapy Treatment Note M2 PT-IP Current Condition Start: 03/23/19 17:13 Freq: NEEDED Status: Active Protocol: Document 03/24/19 10:08 DCW (Rec: 03/24/19 10:47 DCW [id number]) Physical Therapy Current Condition Current Condition Evaluation Date 03/23/19 Treatment Diagnosis L5-S1 TLIF, decreased activity tolerance, difficulty in walking Onset Date 03/23/19 Precautions Lumbar Precautions Log Roll,No Twisting,Limit Bending,Lifting Restriction of 10 lbs,Gait Belt above Incisional Area Weight Bearing Status Weight Bearing Status Full Weight Bearing M3 PT-IP Subjective Start: 03/23/19 17:13 Freq: NEEDED Status: Active Protocol: Document 03/26/19 11:50 CLB (Rec: 03/26/19 12:56 CLB [id number]) Subjective Physical Therapy Visit Type Type Treatment Note Visit Start Time 10:50 Visit Stop Time 11:31 Total Visit Minutes 41 Number of GLASS DEPOSITION TENDER Visits 3 Physical Therapy Visit Comments Patient Comments Pt willing to work with therapy. Therapy Pain Assessment Pain When Pain Assessed During Mobility Pain Present Pain Present Pain Reported Location back Intensity 6 Scale Used Numeric (1 - 10) Description Cramping,Sharp,Spasm Pain Behaviors Calling Out,Facial Grimacing, Holding Area,Restlessness, Wincing Pain Management Techniques Modification of Treatment,Re- positioning,Timing of Activity with Medications M4 PT-IP Mobility and Gait Start: 03/23/19 17:13 Freq: NEEDED Status: Active Protocol: Document 03/26/19 11:50 CLB (Rec: 03/26/19 12:56 CLB [id number]) PT-Bed Mobility Assessment Sit to Supine Sit to Supine Minimal Assistance,Bedrails Scooting Scooting Up and Down in Bed Standby Assistance PT-Transfer Assessment Sit to and From Stand Sit to and from Stand Standby Assistance Equipment Transfer Assistive Device Gait Belt,Front Wheeled Walker Orthotic/Prosthetic Devices or Brace: No Transfers Transfer Destination Bed Transfer Technique after gait walked Transfer Ability Level of Assist Standby Assistance Comments Mobility Comments Pt up in room with CARE NAVIGATOR upon arrival. Pt required Min A of LE's during sit-supine. Left pt in bed with alarm on, call light and all needs within reach and bilateral SCD on. Gait Assessment Gait Gait Assistance Required: Standby Assistance Distance (Feet) 300 Able to Maintain Weight Bearing Status Yes During Gait Assistive Devices Assistive Device Gait Belt,Front Wheeled Walker Factors Limiting Gait Function Factors Limiting Gait Function Decreased Activity Tolerance, Pain Comments Gait Comments Pt used FWW due to increased pain per pt request. Pt required increased time with gait as she stopped to rest multiple times to rest to relieve cramping in RLE. Pt remains steady during gait. M5 PT-IP Objective Assessments Start: 03/23/19 17:13 Freq: NEEDED Status: Active Protocol: Document 03/23/19 16:50 HH (Rec: 03/23/19 17:43 HH [id number]) Orientation Orientation/Cognition Level of Alertness Alert Orientation Name,Age,Birthday,Month,Date, Year,Day of Week,Place, Situation Language Function Ability No Deficits Noted Safety Awareness Understands Safety Issues Memory Description No Deficits Noted Comments pt is able to recall all precautions. Gross Range of Motion Upper Extremity ROM Assessment Within Functional Limits Lower Extremity ROM Assessment Within Functional Limits Strength Upper Extremity Strength Assessment Within Functional Limits Lower Extremity Strength Assessment Bilaterally Impaired Hip 4/5 Knee 4/5 Coordination Assessment Gross Coordination Gross Coordination WNL Sensation Assessment Sensation Gross Sensation WNL Muscle Tone Muscle Tone WNL Yes M6 PT-IP Treatment Start: 03/23/19 17:13 Freq: NEEDED Status: Active Protocol: Document 03/24/19 13:17 DCW (Rec: 03/24/19 14:26 DCW [email or web address]) Physical Therapy Treatment Education Education Provided Precautions,Safety M7 PT-IP Assessment and Plan Start: 03/23/19 17:13 Freq: NEEDED Status: Active Protocol: Document 03/26/19 11:50 CLB (Rec: 03/26/19 12:56 CLB [id number]) PT Summary Assessment and Plan Summary Assessment Summary Pt with increased pain due to cramping in RLE. Pt is SBA for all mobility but needed Min A of LE's getting into bed. Pt reports 8/10 pain with cramping and 6/10 pain in back area. Pt remains steady during ambulation but required increased time to ambulate ~ 300ft. Goals Bed Mobility Goal Independent Transfer Goal Independent,Front Wheeled Walker,Four Wheeled Walker Gait Goal Independent,Front Wheel Walker ,Four Wheel Walker Gait Distance 300 Other Goals amb with 4WW 2STE with b rails Days to Meet Goals 5 Frequency of Treatment Frequency Of Treatment Twice a Day Treatment Plan Physical Therapy Treatment Plan Bed Mobility Training,Transfer Training,Gait Training, Therapeutic Exercise,Balance Retraining,Post Op Education, Discharge Planning,Hot or Cold Pack,Neuromuscular Re-ed Recommendations To Nursing Amount of Assist Needed Standby Assistance,1 Person Assist Discharge Recommendations PT Discharge Recommendations Home with Assistance Equipment Needed for Home Before shower seat Discharge
[2019-03-26] MEDS: ACETAMINOPHEN 325 MG TABLET 650 MG PO (11:52)
== END 2019-03-26 15:01 | disposition home or self-care (01) | DRG 304 ==
PROVIDERS: Admitting Provider Orthopaedic Surgery; PCP Student in an Organized Health Care Education/Training Program; Visit Provider Orthopaedic Surgery
PROC: 0SG30AJ Fusion of Lumbosacral Joint with Interbody Fusion Device, Posterior Approach, Anterior Column, Open Approach (ICD-10-PCS; principal; 2019-03-23 11:15)
DX: M48.07 Spinal stenosis, lumbosacral region (principal); M51.37 Other intervertebral disc degeneration, lumbosacral region; I10 Essential (primary) hypertension; M54.16 Radiculopathy, lumbar region; G89.18 Other acute postprocedural pain; Z87.891 Personal history of nicotine dependence
CPT/HCPCS: 36415; 72100; 76000; 85014; 85018; 94762; 97116; 97161; 97165; 97530; 97535; C1776; J0330; J0595; J0690; J1100; J1170; J2250; J2274; J2405; J2704; J3010; J3410